=== PATIENT | male | born 1965 ===

== ENCOUNTER 2017-11-25 17:23 | Emergency (ER) | payer OTHER ==
[~2017-11-25] VITALS: Ht 172.7 cm; Wt 99.8 kg
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
[2017-11-25 20:12] VITALS: BP 144/58
== END 2017-11-25 20:13 ==
LOC: ERH 17:23
DX: S61.412A Laceration without foreign body of left hand, initial encounter (principal); W26.0XXA Contact with knife, initial encounter; Y93.G1 Activity, food preparation and clean up; Y92.009 Unspecified place in unspecified non-institutional (private) residence as the place of occurrence of the external cause
CPT/HCPCS: 90471